=== PATIENT | male | born 1985 | race Two or more races ===

== ENCOUNTER 2018-02-04 19:05 | Emergency (ER) | payer OTHER ==
[~2018-02-04] VITALS: Ht 180.3 cm; Wt 93.0 kg
[2018-02-04 19:08] VITALS: BP 152/96
[2018-02-04] MEDS ORDERED: TDAP [DIPH/PERTUSSIS/TET] 0.5 ML VIAL IM ONE ×2 (20:00→20:03)
== END 2018-02-04 20:59 | disposition home or self-care (01) ==
LOC: ER 19:08
DX: S83.91XA Sprain of unspecified site of right knee, initial encounter (principal); S80.02XA Contusion of left knee, initial encounter; S50.02XA Contusion of left elbow, initial encounter; S40.812A Abrasion of left upper arm, initial encounter; V23.9XXA Unspecified motorcycle rider injured in collision with car, pick-up truck or van in traffic accident, initial encounter; Y93.89 Activity, other specified; Y92.89 Other specified places as the place of occurrence of the external cause; Y99.8 Other external cause status
CPT/HCPCS: 73080-TC; 73560-TC; 73564-TC; 90715; A4606; Z7610